=== PATIENT | male | born 1970 | race Asian ===

== ENCOUNTER 2024-10-22 02:22 | Outpatient (CLI) | payer OTHER, SELFPAY ==
[2024-10-22 12:29] LABS: HCT 51.6 % (40.0-50.0); MCH 30.4 pg (27.0-33.0); MCHC 32.9 % (32.0-36.0); MCV 92 fL (80-95); Platelet Count 174 10^3/uL (130-400); RBC 5.59 10^6/uL (4.36-5.78); RDW 12.6 % (11.8-14.1); RDW-SD 42.5 fL; WBC 5.97 10^3/uL (4.4-10.8)
[2024-10-22 13:10] LABS: ALT 57 U/L (16-63); AST 24 U/L (15-37); Albumin 4.6 g/dL (3.4-5.0); Alkaline Phosphatase 97 U/L (46-116); BUN 11 mg/dL (7-18); Bilirubin, Total 1.1 mg/dL (0.2-1.0); Calcium 9.9 mg/dL (8.5-10.1); Calculated LDL 93 mg/dL (<100); Chloride 108 mmol/L (98-107); Cholesterol 158 mg/dL (<200); Estimated GFR 90.56 (mL/min/1.73m2); Glucose 149 mg/dL (74-106); HDL Cholesterol 52 mg/dL (>or=40); Potassium 4.3 mmol/L (3.5-5.1); Sodium 146 mmol/L (136-145); Total Protein 8.1 g/dL (6.4-8.2); Triglyceride 67 mg/dL (<150)
[2024-10-22 18:36] LABS: PSA, Screening 1.2 ng/mL (<=3.5)
== END 2024-10-22 02:23 | disposition home or self-care (01) ==
LOC: LOS 02:22
PROVIDERS: PCP Nurse Practitioner Family; Visit Provider Nurse Practitioner Family
DX: I10 Essential (primary) hypertension (principal); Z13.220 Encounter for screening for lipoid disorders; E78.5 Hyperlipidemia, unspecified; Z12.5 Encounter for screening for malignant neoplasm of prostate
CPT/HCPCS: 36415; 80053; 80061; 84153; 85027

== ENCOUNTER 2025-02-12 08:22 | Day surgery (SDC) | payer OTHER, SELFPAY ==
[2025-02-12 08:48] VITALS: BP 121/88; PULSE 67; RESP 18; TEMP 36.5; O2SAT 99
[2025-02-12] MEDS: Lactated Ringers 1,000 ML 80 ML IV (08:59)
--- NOTE | 2025-02-12 09:52 | W.ANESPRE ---
General Info Date of Service Date Performed: 02/12/25 Height: 5 ft 10.87 in Weight: 95.2 kg Body Mass Index (BMI): 29.3 Surgical Procedure: Operation Date: 02/12/25 11:05 Proposed Procedure Side Surgeon rob Gonsales MD Meds Allergies and Home Medications Allergies Allergy/AdvReac Type Severity Reaction Status Date / Time No Known Allergies Allergy Verified 02/12/25 08:52 Home Medication ?Medication ?Instructions ?Recorded metformin 500 mg tablet See Rx Instructions PO DAILY #270 10/09/24 tabs olmesartan 40 mg tablet 40 mg PO DAILY #90 tabs 10/09/24 rosuvastatin 5 mg tablet 5 mg PO DAILY #90 tabs 10/09/24 esomeprazole magnesium 40 mg 40 mg PO DAILY #90 caps 11/04/24 capsule,delayed release bisacodyl 5 mg tablet,delayed 5 mg PO ONCE #4 tabs 02/04/25 release (Dulcolax (bisacodyl)) polyethylene glycol 3350 17 17 g PO ONCE #238 grams 02/04/25 gram/dose oral powder Current Visit Medications: Current Medications Generic Name Dose Route Start Last Admin Trade Name Freq PRN Reason Stop Dose Admin Ringer's Solution 1,000 mls @ 80 mls/hr 02/12/25 06:00 02/12/25 08:59 IV 02/12/25 23:59 80 mls/hr INFUSION EDDY Administration IV Miscellaneous Supplies 1 each 02/12/25 06:00 Iv Access IV 02/12/25 23:59 DIRECTED EDDY Sodium Biphosphate/Sodium Phosphate 133 ml 02/12/25 06:00 Na Phosphate Enema-Adult 133 Ml Btl MI 02/12/25 23:59 DIRECTED EDDY Sodium Chloride 0 ml 02/12/25 06:00 Normal Saline Flush 10 Ml Syr IV 02/12/25 23:59 PRN PRN Sodium Chloride 0 ml 02/12/25 06:00 Normal Saline 10 Ml Vial IJ 02/12/25 23:59 DIRECTED PRN Sterile Water 0 ml 02/12/25 06:00 Water,Injection,Sterile 10 Ml Vial IJ 02/12/25 23:59 DIRECTED PRN PFSH Active Problems Active Problems: Problem Status Onset Code Major depressive disorder Chronic F32.9 GARFIELD (obstructive sleep apnea) Chronic G47.33 GERD (gastroesophageal reflux disease) Chronic K21.9 Hyperlipemia Acute E78.5 Hypertension Chronic I10 Diabetes mellitus Chronic E11.9 Medical History Medical History NAFLD (nonalcoholic fatty liver disease) Surgical History Surgical History Tibial plateau fracture Tobacco Smoking/Tobacco Use Status: Never Passive smoking exposure: No Second hand exposure: No Alcohol Alcohol Intake: current Alcohol intake frequency: a few times a month Alcohol type: beer and wine Substance Use Substance use: Never Substance use type: does not use Vital Signs and Lab Results Vital Signs Most Recent Vital Signs in EMR: Most Recent Vital Signs Temp Pulse Resp BP Pulse Ox 36.5 C 67 18 121/88 99 02/12/25 08:48 02/12/25 08:48 02/12/25 08:48 02/12/25 08:48 02/12/25 08:48 Point of Care Results Point of Care Results: Finger Stick Blood Glucose 129 02/12/25 08:37 Anesthesia Assessment and Plan Anesthesia History Personal History: No History of Anesthesia Complications Family History: No Family History of Anesthesia Complications Exercise Tolerance Exercise Tolerance: Metabolic Equivalents>4 Pertinent Negatives Pertinent Negatives: No Symptoms of GERD, No Major Cardiovascular Symptoms or Complaints, No Major Pulmonary Symptoms or Complaints and No History of CVA/TIA Cardiac & Pulmonary Exam Cardiac Exam: Normal S1/S2 Heart Sounds Pulmonary Exam: Clear Bilateral Breath Sounds Implantable Cardiac Device Does patient have a Pacemaker or an ICD?: No Airway Exam Known Difficult Airway: No Mallampati Class: 3 Mouth Opening: Normal (> 3cm) Thyromental Distance: Greater than 3 cm Neck Range of Motion: Full ROM Neck Circumference: Normal Teeth Condition: Normal Dentition ASA Classification ASA Score: ASA 2 Emergency Case?: No NPO Status NPO Status: NPO Clears >2 hours, Solids >8 hours Anesthesia Plan Resuscitation Status: Full Code Anesthesia Technique: General Anesthesia Airway Planned: Natural Airway Monitors Used: Standard Monitors
[2025-02-12 09:53] VITALS: BMI 29.3
--- NOTE | 2025-02-12 11:41 | BOWEL_PTH ---
PATIENT: Charlotte Calero LOC: [facility] U#:[id number] AGE/SX: 54/M ROOM: RE02/12/[address]: Wendi Gonsales MD : [id number] BED: DIS: 02/12/2025 SPEC #: [id number] RECD: 02/12/25 12:16 STATUS: HARVEY RETom #: [id number] TALIB: 02/12/25 11:[address]: Wendi Gonsales DEPT: Surgical Specimen RECD BY: Zo Stanley ENTERED: 02/12/25 12:17 SP TYPE: Bowel OTHR DR: Kendrick Bonner, ADMINISTR[employer]OCIATE Tissues: 1 - BIOPSY BOWEL Procedures: GROSS AND MICRO LEVEL 4 Comments: [id number]
--- NOTE | 2025-02-12 11:47 | W.PM.DSUDISC ---
Date of service: 02/12/25 Discharge Plan Disposition Patient Disposition: Home Condition: Stable Discharge Details Attending Provider: Wendi Gonsales Primary Care Provider: Kendrick Bonner Recommendations for Follow Up Recommended tests to be ordered by follow up provider: Timing of next colonoscopy will depend on path of transverse polyp Home Meds and New Rx's Prescriptions: No Action metformin 500 mg tablet See Rx Instructions PO DAILY Qty: 270 3RF Rx Instructions: orally daily; Take 2 tablets every morning and 1 tablet every night. rosuvastatin 5 mg tablet 5 mg PO DAILY Qty: 90 3RF olmesartan 40 mg tablet 40 mg PO DAILY Qty: 90 3RF bisacodyl [Dulcolax (bisacodyl)] 5 mg tablet,delayed release (DR/EC) 5 mg PO ONCE Qty: 4 0RF Rx Instructions: Take per colonoscopy instructions provided by ordering providers office polyethylene glycol 3350 17 gram/dose powder 17 g PO ONCE Qty: 238 0RF Rx Instructions: Take per colonoscopy instructions provided by ordering providers office esomeprazole magnesium 40 mg capsule,delayed release(DR/EC) 40 mg PO DAILY Qty: 90 3RF Patient Comments: patient states he doesn't take Discharge Instructions Stand Alone Forms: Anesthesia Discharge Inst., Colonoscopy Post Instructions, Kelli Alvarenga (DSU) Activity:: Activity as Tolerated Diet:: As Tolerated Discharge Orders Discharge Orders: Discharge Order (Routine); Ordered 02/12/25 Ordered By: Wendi Gonsales DS: Diagnosis Discharge Diagnosis (1) Screening for colorectal cancer: Status: Acute (2) Polyp of transverse colon: Status: Acute Asessment and Plan: One tiny polyp of colon seen and removed today. Will follow up on the polyp biopsy and that will determine the timing of next colonoscopy. If this was a hyperplastic polyp, you wont need another colonoscopy for 10 years. If it is an adenoma polyp, you will need to return for another colonoscopy in 5 years. I will notify you in writing with the polyp result. You may return to normal diet and activities. Resume all home medications like normal.
--- NOTE | 2025-02-12 11:49 | COLE_ITS ---
Date of service: 02/12/25 Time of Service: 11:50 Colonoscopy Report Date of procedure: 02/12/25 Pre-op diagnosis general: Screening for colorectal cancer Post-op diagnosis procedure note: other (transverse colon polyp) Procedure: Colonoscopy with cold forceps polypectomy Surgeon: Wendi Gonsales Anesthesia Type: MAC Estimated blood loss (mL): 1 Pathology: other (transverse colon polyp) Complications: None Disposition: same day Indications: Patient is here for routine screening colonoscopy. Informed consent was obtained and the patient was taken to the procedure area. The patient was placed in left lateral decubitus position on the procedure table. Timeout was performed. Anesthesia was induced. A lubricated colonoscope was inserted through the anus and passed to the cecum. The cecum was identified by the ileoc ecal valve and the appendiceal orifice. The scope was then slowly withdrawn and the colonic and rectal mucosa examined. Transverse colon polyp 2mm sessile excised with cold forceps. No diverticulosis was seen. The scope was retroflexed in the anorectal junction examined. Uncomplicated internal hemorrhoids present. Assessment and plan; small transverse polyp seen and removed. Timing of next colonoscopy will depend on path of polyp. If hyperplastic muscosa only, 10 year follow up is appropriate. If adenoma, 5 year follow up will be recommended.
[2025-02-12 11:50] VITALS: BP 99/62; PULSE 90; RESP 16; TEMP 36.6; O2SAT 94
--- NOTE | 2025-02-12 11:52 | W.ANESPOSTOP ---
Postoperative Evaluation Date, Time and Location Date Performed: 02/12/25 Time Performed: 11:52 Patient Location: Day Surgery Unit Vital Signs Most Recent Imported Vital Signs: Most Recent Vital Signs Temp Pulse Resp BP Pulse Ox Most Recent Manually Entered Vital Signs: Adult Blood Pressure: 99/62 Heart Rate: 91 Respirations: 16 Oxygen Saturation (%): 94 Temperature (C): 36.6 C Pain Score (0-10 Scale): 0 Pain Score Most Recent Pain Score: Most Recent Pain Score Pain Level 0 02/12/25 08:48 Assessment Mental Status: Arousable with meaningful communication Airway and Respiratory Function: Patent airway with normal (patient baseline) respiratory exam Cardiovascular Function: Hemodynamically Stable Hydration Status: Adequately Hydrated Nausea & Vomiting: No Nausea or Vomiting Pain: Pt. Denies Any Pain Peripheral Nerve Block: Patient did not receive a nerve block
[2025-02-12 11:53] VITALS: BP 99/62; PULSE 91; RESP 16; TEMPC 36.6; O2SAT 94
[2025-02-12 12:19] VITALS: BP 128/78; PULSE 61; RESP 14; TEMP 36.4; O2SAT 97
== END 2025-02-12 12:40 | disposition home or self-care (01) ==
LOC: SUR 08:22
PROVIDERS: PCP Nurse Practitioner Family; Visit Provider Surgery
PROC: 0DJD8ZZ Inspection of Lower Intestinal Tract, Via Natural or Artificial Opening Endoscopic (ICD-10-PCS; CPT 45378; principal; 2025-02-12 11:00)
DX: Z12.11 Encounter for screening for malignant neoplasm of colon (principal); Z12.12 Encounter for screening for malignant neoplasm of rectum; K63.5 Polyp of colon; K63.89 Other specified diseases of intestine
CPT/HCPCS: 45380; 88305; J2003; J2405; J2704